=== PATIENT | male | born 1955 | race Caucasian/White ===

== ENCOUNTER → 2017-11-03 | Outpatient (CLI) | payer BC ==
[~2017-11-03] MED LIST: ASPIR-LOW81 MG PO; FLOMAX 0.40.4 MG/CAP PO; LEVAQUIN 5500 MG/TAB PO; LORTAB 7.5/5001 TAB PO; VYTORIN; WELLBUTRIN SR150 M1 PO
== END ==
LOC: MHCPAIN 10:47
DX: G89.29 Other chronic pain (principal); M47.817 Spondylosis without myelopathy or radiculopathy, lumbosacral region; M53.3 Sacrococcygeal disorders, not elsewhere classified
CPT/HCPCS: G0463

== ENCOUNTER → 2017-11-29 | Outpatient (CLI) | payer BC | LOC: MHCPAIN 09:25 | DX: M47.817 Spondylosis without myelopathy or radiculopathy, lumbosacral region (principal); M46.96 Unspecified inflammatory spondylopathy, lumbar region ==

== ENCOUNTER → 2017-12-06 | Outpatient (CLI) | payer BC | LOC: MHCPAIN 13:44 | DX: G89.29 Other chronic pain (principal); M47.817 Spondylosis without myelopathy or radiculopathy, lumbosacral region; M53.3 Sacrococcygeal disorders, not elsewhere classified | CPT/HCPCS: G0463 ==

== ENCOUNTER → 2017-12-28 | Outpatient (CLI) | payer BC | LOC: MHCPAIN 14:35 | DX: M47.817 Spondylosis without myelopathy or radiculopathy, lumbosacral region (principal); M12.88 Other specific arthropathies, not elsewhere classified, other specified site ==

== ENCOUNTER → 2018-01-03 | Outpatient (CLI) | payer BC | LOC: MHCPAIN 10:54 | DX: G89.29 Other chronic pain (principal); M47.817 Spondylosis without myelopathy or radiculopathy, lumbosacral region; M53.3 Sacrococcygeal disorders, not elsewhere classified | CPT/HCPCS: G0463 ==

== ENCOUNTER → 2018-02-08 | Outpatient (CLI) | payer BC | LOC: MHCPAIN 13:31 | DX: M47.817 Spondylosis without myelopathy or radiculopathy, lumbosacral region (principal); M46.96 Unspecified inflammatory spondylopathy, lumbar region; M46.97 Unspecified inflammatory spondylopathy, lumbosacral region | CPT/HCPCS: J1100; J2250; J3010 ==

== ENCOUNTER → 2018-02-28 | Outpatient (CLI) | payer BC | LOC: MHCPAIN 12:24 | DX: M47.817 Spondylosis without myelopathy or radiculopathy, lumbosacral region (principal); M46.96 Unspecified inflammatory spondylopathy, lumbar region; M46.97 Unspecified inflammatory spondylopathy, lumbosacral region | CPT/HCPCS: J1100; J2250; J3010 ==